=== PATIENT | female | born 1950 | race Caucasian/White ===

== ENCOUNTER 2016-09-09 11:10 | Emergency (ER) | payer OTHER ==
--- NOTE | 2016-09-09 11:29 | CPEKG ---
Heart Rate: 87 RR Interval: 690 P-R Interval: 142 QRSD Interval: 92 QT Interval: 392 QTC Interval: 472 P [place]: 15 QRS [place]: 11 T Wave [place]: 32 EKG Severity - NORMAL ECG - EKG Impression: SINUS RHYTHM Electronically Signed By: Adam Blue 11-Sep-2016 17:26:23
[2016-09-09] MEDS ORDERED: methylPREDNISolone SOD SUCC 125 MG/2 ML VIAL IVP ONE (12:35)
[2016-09-09] MEDS ORDERED: NS 1,000 ML IV ONE (12:35)
[2016-09-09 12:40] LABS: % IMMATURE GRANULYOCYTES 0.3 % (0.0-1.1); ABSOLUTE IMMATURE GRANULOCYTES 0.01 10^3/uL (0.00-0.10); ADD DIFF? NO; ADD MORPH? NO; ADD SCAN? NO; ATYPICAL LYMPHOCYTE FLAG 10 (0-99); FRAGMENT RBC FLAG 0 (0-99); HEMATOCRIT 42.4 % (38.0-47.0); HEMOGLOBIN 14.8 g/dL (12.6-16.3); LEFT SHIFT FLG 0 (0-99); LIPEMIA HEMOLYSIS FLAG 90 (0-99); MEAN CELL HEMOGLOBIN 32.8 pg (27.9-34.1); MEAN CELL HEMOGLOBIN CONCENTR. 34.9 g/dL (32.4-36.7); MEAN PLATELET VOLUME 10.1 fL (8.7-11.7); PLATELET CLUMPS FLAG 0 (0-99); PLATELET COUNT 218 10^3/uL (150-400); RED BLOOD CELL COUNT 4.51 10^6/uL (4.18-5.33); RED CELL DISTRIBUTION WIDTH 11.4 % (11.5-15.2)
--- NOTE | 2016-09-09 12:49 | EDPHY ---
H & P Stated Complaint: CHEST PRESSURE, NOTICING HEART BEAT Time Seen by Provider: 09/09/16 12:26 - Personal History Current Tetanus/Diphtheria Vaccine: Unsure - Medical/Surgical History Hx Asthma: No Hx Chronic Respiratory Disease: No Hx Diabetes: No Hx Cardiac Disease: No Hx Renal Disease: No Hx Cirrhosis: No Hx Alcoholism: No Hx HIV/AIDS: No Hx Splenectomy or Spleen Trauma: No Other PMH: BREAST CANCER - Social History Smoking Status: Never smoked Constitutional: Initial Vital Signs Temperature (C) 37 C 09/09/16 11:14 Heart Rate 91 09/09/16 11:14 Respiratory Rate 16 09/09/16 11:14 Blood Pressure 180/98 H 09/09/16 11:14 O2 Sat (%) 99 09/09/16 11:14 O2 Delivery Mode Nasal Cannula O2 (L/minute) 2 Allergies/Adverse Reactions: latex Allergy (Verified 09/09/16 11:18) GADLINIUM Allergy (Uncoded 09/09/16 11:18) Home Medications: Medication Instructions Recorded Dexamethasone 4 mg PO 02/08/12 LORazepam [Ativan 1 mg (RX)] 1 mg PO 02/08/12 ONDANSETRON HCL [Zofran 8 mg] 8 mg PO 02/08/12 Omeprazole 20 mg PO 02/08/12 Pegfilgrastim [Neulasta] 6 mg SQ 02/08/12 Prochlorperazine Maleate 10 mg PO 02/08/12 Anastrozole 09/09/16 Medical Decision Making - Diagnostics Imaging Results: Imaging Impressions Chest/Thorax CTA 09/09/16 12:36 Impression: 1. No pulmonary embolism. 2. Incidental 5.4 x 5.6 cm left hepatic cyst, mostly residing within liver parenchyma without expanding the liver capsule. I doubt this is the cause of patient's symptoms. 3. Significant levoscoliosis. No compression fracture or focal lesions. 4. Status post right mastectomy. 5. No developing lesions on the left side. No developing adenopathy. Findings and recommendations discussed with Genaro Ruiz M.D. at 1415 hours on September 09, 2016. Final report concurs with initial preliminary interpretation. Imaging: Discussed imaging studies w/ call center agent Radiologist, I viewed and interpreted images myself ED Course/Re-evaluation: CHIEF COMPLAINT: Chest pain chest pressure, high heart rate HISTORY OF PRESENT ILLNESS: 66-year-old female who has a past medical history consistent with breast cancer. She had a mastectomy and is currently on long- term Arimidex therapy. There is no recurrences far she knows. She does also got back from a trip from [place]. They obviously fluid [place] but they rented a car while there drove all over. Since her trip from [place] she has noticed that she is having some difficulty catching her breath. Especially when she exerts herself. She also has some pleuritic chest pressure and pain. She has noticed her heart rate is much higher than usual even sitting at rest. She denies any other symptoms like this in the past. REVIEW OF SYSTEMS: A 10 point review of systems was performed and is negative with the exception of the elements mentioned in the history of present illness. PHYSICAL EXAM: HR, BP, O2 Sat, RR. Temp noted - tachycardic, tachypneic but maintaining good O2 sats General Appearance: Alert, well hydrated, appropriate, and non-toxic appearing. Head: Atraumatic without scalp tenderness or obvious injury Eyes: Pupils equal, round, reactive to light and accommodation, EOMI, no trauma , no injection. Ears: Clear bilaterally, no perforation, normal landmarks Nose: Atraumatic, no rhinorrhea, clear. Throat: There is no erythema or exudates, no lesions, normal tonsils, mucus membranes moist. Neck: Supple, 2+ carotid upstroke, nontender, no lymphadenopathy. Respiratory: No retractions, no distress, no wheezes, and no accessory muscle use. Lungs are clear to auscultation bilaterally. Cardiovascular: Regular rate and rhythm, no murmurs, rubs, or gallops. Bilateral carotid, radial, dorsalis pedis, and posterior tibial pulses intact. Good capillary refill all extremities. Gastrointestinal: Abdomen is soft, nontender, non-distended, no masses, no rebound, no guarding, no peritoneal signs. Musculoskeletal: Normal active ROM of all extremities, atraumatic. Neurological: Alert, appropriate, and interactive. The patient has normal DTRs and non-focal cranial nerves, motor, sensory, and cerebellar exam. Skin: No rashes, good turgor, no nodules on palpation. Past medical history: Breast cancer Past surgical history: Mastectomy Family history: Noncontributory Social history: Just return from a transatlantic flight in addition to brain to car while in [place], does not smoke, does not abuse alcohol or drugs. , retired DIAGNOSTICS/PROCEDURES/CRITICAL CARE TIME: Study: CT angiography of the lungs Indication: rule out pulmonary embolus Results: CT scan of the lungs was obtained. The results of the study are no PE. The study was read by the radiologist, Dr. Gomes. I viewed the images myself on the PACS system. The 12 lead EKG was interpreted by myself. Sinus mechanism. Questionable ST depression. See hard copy and/or "tracemaster" electronic copy for interpretation. Echocardiogram: Normal per Dr. Cole. DIFFERENTIAL DIAGNOSIS: The differential diagnosis for the patient's shortness of breath included but was not limited to pneumonia, myocardial infarction, congestive heart failure, and pulmonary embolus. MEDICAL DECISION MAKING: I am concerned that this patient has a at significantly high risk for pulmonary embolus. She has a past medical history significant for breast cancer and is currently still being treated with Arimidex. Additionally, she just returned from a transatlantic flight and rented a car while they are driving around for many hours. Also, her symptoms correspond temporarily with her arriving back in the [place] after this trip. It is not necessary to perform a D-dimer. I have a significantly high pretest probability am going right to CT angiography. Additionally in this patient's differential is some affect from chemotherapy regarding lung fact and/or cardiac effect. We are obtaining records from [place]. BNP mildly elevated. Troponin negative. 1423: Reassessed patient and discussed work up thus far. CTA chest is negative for PE. Plan for echocardiogram. 1535: Consulted with Dr. Cole, strap buckler machine. He will review echo and call me back. 1556: Consulted with Dr. Cole. He reads the echo as normal and recommends outpatient follow up. I discussed this recommendation with the patient and answered all her questions. She agrees with plan for follow up. Return precautions given. - Data Points Laboratory Results: Laboratory Results 09/09/16 11:30 09/09/16 11:30 09/09/16 09/09/16 11:30 11:30 WBC 3.16 10^3/uL L 10^3/uL (3.80-9.50) RBC 4.51 10^6/uL 10^6/uL (4.18-5.33) Hgb 14.8 g/dL g/dL (12.6-16.3) Hct 42.4 % % (38.0-47.0) MCV 94.0 fL fL (81.5-99.8) MCH 32.8 pg pg (27.9-34.1) MCHC 34.9 g/dL g/dL (32.4-36.7) RDW 11.4 % L % (11.5-15.2) Plt Count 218 10^3/uL 10^3/uL (150-400) MPV 10.1 fL fL (8.7-11.7) Neut % (Auto) 52.3 % % (39.3-74.2) Lymph % (Auto) 35.1 % % (15.0-45.0) [place] % (Auto) 11.4 % % (4.5-13.0) Eos % (Auto) 0.0 % L % (0.6-7.6) Baso % (Auto) 0.9 % % (0.3-1.7) Nucleat RBC Rel Count 0.0 % % (0.0-0.2) Absolute Neuts (auto) 1.65 10^3/uL L 10^3/uL (1.70-6.50) Absolute Lymphs (auto) 1.11 10^3/uL 10^3/uL (1.00-3.00) Absolute Monos (auto) 0.36 10^3/uL 10^3/uL (0.30-0.80) Absolute Eos (auto) 0.00 10^3/uL L 10^3/uL (0.03-0.40) Absolute Basos (auto) 0.03 10^3/uL 10^3/uL (0.02-0.10) Absolute Nucleated RBC 0.00 10^3/uL 10^3/uL (0-0.01) Immature Gran % 0.3 % % (0.0-1.1) Immature Gran # 0.01 10^3/uL 10^3/uL (0.00-0.10) Sodium 139 mEq/L mEq/L (134-144) Potassium 3.9 mEq/L mEq/L (3.5-5.2) Chloride 104 mEq/L mEq/L (97-110) Carbon Dioxide 21 mEq/l L mEq/l (22-31) Anion Gap 14 mEq/L mEq/L (8-16) BUN 12 mg/dL mg/dL (7-23) Creatinine 0.7 mg/dL mg/dL (0.6-1.0) Estimated GFR > 60 Glucose 97 mg/dL mg/dL (70-100) Calcium 10.1 mg/dL mg/dL (8.5-10.4) Troponin I < 0.012 ng/mL ng/mL (0-0.034) NT-Pro-B Natriuret Pep 278 pg/mL H pg/mL (0-125) Medications Given: Discontinued Medications Sodium Chloride (Ns) 1,000 mls @ 0 mls/hr IV ONCE ONE; Wide Open PRN Reason: Protocol Stop: 09/09/16 12:36 Last Admin: 09/09/16 12:46 Dose: 1,000 mls Lorazepam (Ativan Injection) 1 mg IVP EDNOW ONE Stop: 09/09/16 14:27 Last Admin: 09/09/16 14:29 Dose: 1 mg Methylprednisolone Sodium Succinate (Solu-Medrol) 125 mg IVP EDNOW ONE Stop: 09/09/16 12:36 Last Admin: 09/09/16 12:46 Dose: 125 mg Departure - Departure Disposition: Home, Routine, Self-Care Clinical Impression: Atypical chest pain Condition: Good Instructions: Chest Pain (ED) Additional Instructions: Call Dr. Cole's office today to make a follow up cardiology appointment for this week. Return to the ED for any worsening of condition. Referrals: LYNNE HOLDER [Primary Care Provider] - As per Instructions Dewayne Cole MD [Medical Doctor] - As per Instructions
[2016-09-09 12:54] LABS: ANION GAP 14 mEq/L (8-16); CALCIUM 10.1 mg/dL (8.5-10.4); CARBON DIOXIDE 21 mEq/l (22-31); CHLORIDE 104 mEq/L (97-110); CREATININE 0.7 mg/dL (0.6-1.0); GLOMERULAR FILTRATION RATE > 60; GLUCOSE 97 mg/dL (70-100); POTASSIUM 3.9 mEq/L (3.5-5.2); SODIUM 139 mEq/L (134-144)
[2016-09-09] MEDS ORDERED: IOPAMIDOL (ISOVUE-300) 100 ML BTL ONE (13:20)
[2016-09-09] MEDS ORDERED: IOPAMIDOL (ISOVUE 370) 100 ML BTL IV ONE (13:34)
[2016-09-09 13:44] LABS: TROPONIN I < 0.012 ng/mL (0-0.034)
[2016-09-09] MEDS ORDERED: LORazepam 2 MG/ML INJ IVP ONE (14:26)
[2016-09-09 14:58] VITALS: RESP 18
--- NOTE | 2016-09-09 15:50 | ECHO ---
[id number] + + [address] : : [place] [address] : : [phone] + + Adult Echocardiographic Report + ---------+ :Name: DUSTY LUONG FStudy Date: 09/09/2016 02:49 PM : : Hospital Admission Number: [id number] Locat ion: ER11: :: 1950 Gender: Female Height: 67 in : :Age: 66 yrs Race: WH Weight: 136 l b : :Reason For Study: Eval LV Fx : : BSA: 1.7 mete rs2 : :History: Chest Pain, Tachycardia, Hx of Breast CA, chemo : + ---------+ MMode/2D Measurements \T\ Calculations IVSd: 0.69 cm LVIDd: 4.9 cm FS: 37.7 % Ao root diam: 3.0 cm LVPWd: 0.87 cm LVIDs: 3.0 cm EDV(Teich): 111.7 ml ACS: 1.5 cm ESV(Teich): 36.2 ml EF(Teich): 67.6 % Normal Measurement Values: + + :LVIDd (3.5-5.7cm) IVSd (0.6-1.1cm) LVPWd (0.6-1.1cm) Aortic Root (2.0-3.7cm)Left Atrium (1.5-4.0cm): :LV Vol(d) (76-115ml) LV Vol(s) (29-48ml) Ejec Fraction (50-65%)PV Rodri (0.6- 1.2m/s) TV Rodri (0.4-1.0m/s) : :MV E Rodri (0.8-1.0m/s)MV A Rodri (0.3-1.0m/s)LVOT Rodri (0.7-1.2m/s) Asc Ao Rodri ( 0.9-1.8m/s) : + + Doppler Measurements \T\ Calculations MV E max rodri: Ao V2 max: LV V1 max: PA V2 max: 66.6 cm/sec 141.0 cm/sec 76.0 cm/sec 80.1 cm/sec MV A max rodri: Ao max P.0 mmHgLV V1 max PG: PA max P.8 cm/sec 2.3 mmHg 2.6 mmHg MV E/A: 0.75 TR max rodri: 254.0 cm/sec TR max P.8 mmHg RAP systole: 5.0 mmHg RVSP(TR): 30.8 mmHg Left Ventricle The left ventricle is normal in size. There is normal left ventricular wall thickness. The left ventricular ejection fraction is normal. There is Doppler evidence for diastolic dysfunction. Ejection Fraction = 68%. The left ventricular wall motion is normal. Right Ventricle The right ventricle is normal in size and function. Atria The left atrial size is normal. Right atrial size is normal. Mitral Valve The mitral valve is normal. There is no evidence of mitral valve prolapse. There is no mitral valve stenosis. There is trace to mild mitral regurgitation. Tricuspid Valve Normal tricuspid valve. There is trace to mild tricuspid regurgitation. Right ventricular systolic pressure is 31mmHg. Aortic Valve The aortic valve is normal in structure and function. There is no aortic stenosis. There is no aortic insufficiency. Pulmonic Valve The pulmonic valve is not well visualized. There is no pulmonic valvular regurgitation. Great Vessels The aortic root is normal size. Pericardium/Pleural There is no pericardial effusion. Conclusion A complete two-dimensional transthoracic echocardiogram was performed (2D, M-mode, Doppler and color flow Doppler). The left ventricular ejection fraction is normal. There is Doppler evidence for diastolic dysfunction. Ejection Fraction = 68%. The left ventricular wall motion is normal. The right ventricle is normal in size and function. The left atrial size is normal. The mitral valve is normal. There is trace to mild mitral regurgitation. Normal tricuspid valve There is trace to mild tricuspid regurgitation. The aortic valve is normal in structure and function. There is no pericardial effusion. DR MARTINEZ WOULD LIKE A PRELIMINARY CALL ON THIS PATIENT [id number] Right ventricular systolic pressure is 31mmHg. Final Reading Physician: Dewayne Cole electronically signed on 09/09/2016 03:48 PM Ordering Physician: Genaro Martinez Performed By: Matheus Siegel, CS
[2016-09-09 16:10] VITALS: BP 153/79; PULSE 83; TEMP 98.2; O2SAT 98
== END 2016-09-09 16:13 | disposition home or self-care (01) ==
DX: R07.89 Other chest pain (principal); E86.9 Volume depletion, unspecified; Z85.3 Personal history of malignant neoplasm of breast
CPT/HCPCS: 71275; 93005; 93306; 96374; 96375; 99285; J2060; Q9967